=== PATIENT | female | born 1965 | race Hispanic/Latino ===

== ENCOUNTER 2017-02-22 10:40 | Emergency (ER) | payer OTHER ==
[~2017-02-22] VITALS: Ht 152.4 cm; Wt 50.3 kg
--- NOTE | 2017-02-22 11:49 | ED NECK/BACK PAIN COMPLAINT ---
History of Present Illness General Chief Complaint: Abdominal Pain/Flank Pain Stated Complaint: LBP RADIATING TO ABD Source: patient, family Exam Limitations: language barrier Vital Signs & Intake/Output Vital Signs & Intake/Output Vital Signs Date Time Temp Pulse Resp B/P B/P Pulse O2 O2 Flow FiO2 Mean Ox Delivery Rate 02/22 1251 73 20 114/68 97 02/22 1156 Room Air 02/22 1050 99.1 90 18 119/81 95 Room Air Allergies Coded Allergies: codeine (Severe, ITCHING 02/22/17) Triage Note: PT TO ED FOR L SIDED FLANK PAIN RADIATING TO L SIDE OF ABD X 3 DAYS, REPORTING 1 DAY OF BURNING WITH URINATION, SAW [facility] YESTERDAY, WAS PLACED ON OXY AND CIPRO FOR A UTI, HERE TODAY "BECAUSE IM NOT BETTER" Triage Nurses Notes Reviewed? yes HPI: 51F WITH 2 DAYS OF BILATERAL LOWER BACK PAIN RADIATING TO BOTH LEGS. NO WEAKNESS, EXTREMITY PARESTHESIA, SADDLE PARESTHESIA, INCONTINENCE. REPORTS DYSURIA, GIVEN CIPRO BY URGENT CARE 1 DAY AGO. NO HEMATURIA. NO ABDOMINAL PAIN. DENIES FEVER, CHILLS, CHEST PAIN, SOB, DIARRHEA, CONSTIPATION. NO HISTORY OF TRAUMA. Past History Travel History Traveled to [place] past 21 day No Medical History Any Pertinent Medical History? see below for history Neurological: NONE EENT: NONE Cardiovascular: hypertension Respiratory: NONE Gastrointestinal: NONE Hepatic: NONE Renal: NONE Musculoskeletal: NONE Psychiatric: NONE Endocrine: NONE Blood Disorders: NONE Cancer(s): NONE Surgical History Surgical History: non-contributory Psychosocial History What is your primary language Turkish Tobacco Use: Current Daily Use Daily Tobacco Use Amount/Type: =< 4 Cigarettes daily ETOH Use: denies use Illicit Drug Use: denies illicit drug use Family History Hx Contributory? Yes Review of Systems Review of Systems Constitutional: Reports: see HPI. Eyes: Reports: no symptoms. Ears, Nose, Throat, Mouth: Reports: no symptoms. Respiratory: Reports: no symptoms. Cardiovascular: Reports: no symptoms. Gastrointestinal/Abdominal: Reports: no symptoms. Musculoskeletal: Reports: see HPI. Skin: Reports: no symptoms. Neurological/Psychological: Reports: no symptoms. All Other Systems: Reviewed and Negative Physical Exam Physical Exam General Appearance: well developed/nourished, no apparent distress Head: normal appearance Ears, Nose, Throat, Mouth: moist mucous membrane Neck: normal inspection Respiratory: normal breath sounds Cardiovascular: regular rate/rhythm Gastrointestinal: soft, non-tender Back: PARAVERTEBRAL SPINAL TENDERNESS. NO CVA TENDERNESS Extremities: normal range of motion Straight Leg Raising: Right: Negative. Left: Negative. Neurologic/Psych: no motor/sensory deficits Progress Differential Diagnosis: herniated disc, pyelo/UTI, sciatica, ureterolithiasis Plan of Care: Orders Procedure Date/time Status CULTURE,URINE 02/22 1126 Active URINALYSIS 02/22 1126 Complete HEPATIC FUNCTION PANEL 02/22 1126 Complete CBC WITHOUT DIFFERENTIAL 02/22 1126 Complete BASIC ELECTROLYTES PLUS BUN&CR 02/22 1126 Complete Laboratory Tests 02/22/17 1132: Anion Gap 11, Estimated GFR > 60, BUN/Creatinine Ratio 12.9, Total Bilirubin 0.4 , Direct Bilirubin 0.2, AST 18, ALT 37, Alkaline Phosphatase 85, Total Protein 7.1, Albumin 4.2, CBC w Diff MAN DIFF ORDERED, RBC 5.08, MCV 79.1 L, MCH 25.9 L, RDW 14.1, MPV 10.1, Gran % 77.4 H, Lymphocytes % 13.3 L, Monocytes % 9.2, Eosinophils % 0.1, Basophils % 0 L, Absolute Granulocytes 12.4 H, Segmented Neutrophils 69, Band Neutrophils 10 H, Absolute Lymphocytes 2.1, Lymphocytes 15 L, Monocytes 6, Absolute Monocytes 1.5 H, Absolute Eosinophils 0, Absolute Basophils 0, Platelet Estimate ADEQUATE, Normocytic RBCs VERIFIED, Normochromic RBCs VERIFIED, PUBS MCHC 32.7 L, Urinalysis LIGHT H, Urine Color YEL, Urine Clarity HAZY H, Urine pH 6.0, Ur Specific [place] 1.010, Urine Protein NEG, Urine Ketones NEG, Urine Nitrite NEG, Urine Bilirubin NEG, Urine Urobilinogen 0.2, Ur Leukocyte Esterase TRACE H, Ur Microscopic SEDIMENT EXAMINED, Urine RBC 1-3, Urine WBC 10-15 H, Ur Epithelial Cells FEW, Urine Hemoglobin SMALL H, Urine Glucose NEG Microbiology 02/22 1132 URINE ROUT: Urine Culture - RECD URINALYSIS, URINE CULTURE, RENAL ULTRASOUND, CBC, CMP. LABS AND IMAGING REVIEWED AND DISCUSSED WITH PATIENT. NO EVIDENCE OF OBSTRUCTION OR NEPHROLITHIASIS. BACK PAIN IS MUSCULOSKELETAL IN NATURE WITHOUT EVIDENCE OF SPINAL CORD INVOLVEMENT. ELEVATED WBC LIKELY SECONDARY TO UTI. AFEBRILE. WILL DISCHARGE WITH BACTRIM AND MOTRIN, FOLLOW UP WITH PCP ON DISCHARGE. RETURN TO ED IF FEBRILE OR WORSENS. (GIOVANNI SIMMONS,RUDDY) Diagnostic Imaging: Viewed by Me: Ultrasound. Discussed w/RAD: Ultrasound. Radiology Impression: PATIENT: SAM PATEL PRESENT AGE: 51 PATIENT ACCOUNT NO: [id number] : 65 LOCATION: [facility] ORDERING PHYSICIAN: RUDDY DAVILA MD SERVICE DATE: 02/22/17 EXAM TYPE : US - US-COMPLETE ABDOMEN EXAMINATION: US ABDOMEN COMPLETE CLINICAL INFORMATION : Left greater than right flank pain with dysuria.. COMPARISON: None TECHNIQUE: Real-time imaging of the abdominal viscera. FINDINGS: PANCREAS: Normal. ABDOMINAL AORTA: The proximal segment is normal in caliber. INFERIOR VENA CAVA: Visualized portions are normal. LIVER: Normal. The liver demonstrates normal size, contour and echogenicity. No focal lesion or intrahepatic biliary duct dilatation. GALLBLADDER: Normal. The gallbladder is physiologically distended without evidence of stones, sludge, polyps, wall thickening or pericholecystic fluid. COMMON BILE DUCT: Normal in caliber measuring 0.3 cm in diameter. RIGHT KIDNEY: Normal. No hydronephrosis. No renal calculi or focal parenchymal lesions. The kidney measures 10.7 cm in maximum dimension. LEFT KIDNEY: Normal. No hydronephrosis. No renal calculi or focal parenchymal lesions. The kidney measures 10.6 cm in maximum dimension. SPLEEN: Normal. The spleen measures 7.8 cm in maximum dimension. FREE FLUID: None. IMPRESSION: No hydronephrosis. No renal calculi demonstrated. DICTATED BY: ABELINO MENCHACA MD DATE/TIME DICTATED:1249 LOGISTICS VICE PRESIDENT:ROMAN DATE/TIME TRANSCRIBED:02/22/171249 CONFIDENTIAL, DO NOT COPY WITHOUT APPROPRIATE AUTHORIZATION. <Electronically signed in Other Vendor System> SIGNED BY: ABELINO MENCHACA MD 02/22/17 1254 Departure Departure Time of Disposition: 1408 Disposition: HOME OR SELF CARE Condition: Stable Clinical Impression Primary Impression: UTI (urinary tract infection) Secondary Impressions: Lower back pain Referrals: MITRA MOJICA MD (PCP/Family) Additional Instructions: BACTRIM FOR 7 DAYS. STAY WELL HYDRATED. FOLLOW UP WITH PCP. MOTRIN FOR BACK PAIN. RETURN IF FEBRILE OR WORSENS. Departure Forms: Customer Survey General Discharge Information Prescriptions: Current Visit Scripts Sulfamethoxazole/Trimethoprim (Bactrim Ds Tablet) 1 TAB PO BID #14 TAB
[2017-02-22 11:52] LABS: ABSOLUTE BASOPHIL COUNT 0 /CUMM (0.0-0.2); ABSOLUTE EOSINOPHIL COUNT 0 /CUMM (0.0-0.7); ABSOLUTE GRANULOCYTE CT 12.4 /CUMM (1.4-6.5); ABSOLUTE LYMPH COUNT 2.1 /CUMM (1.2-3.4); ABSOLUTE MONOCYTE COUNT 1.5 /CUMM (0.10-0.60); BASOPHIL % 0 % (0.0-2.0); EOSINOPHIL % 0.1 % (0-5); GRANULOCYTE % 77.4 % (42.2-75.2); HEMATOCRIT 40.2 % (37-47); MEAN CORPUSCULAR HGB 25.9 PG (27.0-31.0); MEAN CORPUSCULAR HGB CONC 32.7 G/DL (33.0-37.0); MEAN CORPUSCULAR VOLUME 79.1 FL (81.0-99.0); MEAN PLATELET VOLUME 10.1 FL (7.4-10.4); PLATELET COUNT 277 /CUMM (130-400); RBC DISTRIBUTION WIDTH 14.1 % (11.5-14.5); RED BLOOD CELL CT 5.08 /CUMM (4.20-5.40)
--- NOTE | 2017-02-22 12:54 | ULTRASOUND REPORT ---
EXAMINATION: US ABDOMEN COMPLETE CLINICAL INFORMATION: Left greater than right flank pain with dysuria.. COMPARISON: None TECHNIQUE: Real-time imaging of the abdominal viscera. FINDINGS: PANCREAS: Normal. ABDOMINAL AORTA: The proximal segment is normal in caliber. INFERIOR VENA CAVA: Visualized portions are normal. LIVER: Normal. The liver demonstrates normal size, contour and echogenicity. No focal lesion or intrahepatic biliary duct dilatation. GALLBLADDER: Normal. The gallbladder is physiologically distended without evidence of stones, sludge, polyps, wall thickening or pericholecystic fluid. COMMON BILE DUCT: Normal in caliber measuring 0.3 cm in diameter. RIGHT KIDNEY: Normal. No hydronephrosis. No renal calculi or focal parenchymal lesions. The kidney measures 10.7 cm in maximum dimension. LEFT KIDNEY: Normal. No hydronephrosis. No renal calculi or focal parenchymal lesions. The kidney measures 10.6 cm in maximum dimension. SPLEEN: Normal. The spleen measures 7.8 cm in maximum dimension. FREE FLUID: None. IMPRESSION: No hydronephrosis. No renal calculi demonstrated.
[2017-02-22] MEDS ORDERED: BACTRIM DS TAB1 EACH PO (14:11)
[2017-02-22 14:20] VITALS: BP 118/61
== END 2017-02-22 14:21 ==
LOC: ERH 10:40
PROVIDERS: Internal Medicine
DX: N39.0 Urinary tract infection, site not specified (principal); M54.5 Low back pain
CPT/HCPCS: 81001; 82436; 87086